=== PATIENT | male | born 1995 | race Caucasian/White ===

== ENCOUNTER 2020-03-13 23:08 | Emergency (ER) | payer OTHER, SELFPAY ==
[2020-03-13] MEDS ORDERED: KETOROLAC 30 MG/ML INJ ONE (23:39)
[2020-03-13] MEDS ORDERED: ONDANSETRON 4 MG/2 ML VIAL ONE (23:39)
[2020-03-13] MEDS ORDERED: NA CHLORIDE 0.9% 1,000 ML ONE (23:40)
[2020-03-13 23:46] LABS: Absolute Lymphocytes (CBC) 1.3 K/uL (0.7-4.9); Basophils % 0.3 % (0-1.3); Hematocrit 47.1 % (39.6-49.0); Lymphocytes % 9.9 % (15.3-44.8); RBC Red Blood Cell Count 5.41 M/uL (4.33-5.43)
[2020-03-13 23:58] LABS: Albumin 4.8 g/dL (3.4-5.0); Bilirubin Direct 0.2 mg/dL (0-0.2); Bilirubin Total 0.9 mg/dL (0.2-1.0); Potassium 3.8 mmol/L (3.5-5.1); Protein, Total 8.7 g/dL (6.4-8.2)
[2020-03-14] MEDS ORDERED: MORPHINE 4 MG/ML SYR ONE (00:18)
[2020-03-14 00:48] LABS: Blood Morphology Comment NOT SEEN (NOT SEEN); Platelet Estimate ADEQ
--- NOTE | 2020-03-14 01:47 | EDPHYS ---
Physician Documentation [facility] Name: Kishan Jose Age: 24 yrs Sex: Male : 1995 Arrival Date: 03/13/2020 Time: 23:13 Bed 6 Private MD: ED Physician Roberto Carlos Jones HPI: 03/14 01:43 This 24 yrs old Male presents to ER via Ambulatory with complaints of tw4 Abdominal Pain, Breathing Difficulty, Vision Problem. 01:43 The patient presents with abdominal pain. Onset: The symptoms/episode began/occurred tw4 today. The symptoms do not radiate. Associated signs and symptoms: Pertinent positives: headache. The symptoms are described as crampy. Modifying factors: The symptoms are alleviated by nothing, the symptoms are aggravated by nothing. Severity of pain: At its worst the pain was moderate in the emergency department the pain is unchanged. The patient has not experienced similar symptoms in the past. Historical: - Allergies: 03/13 23:23 No Known Allergies; mg2 - PMHx: 23:23 None; mg2 - PSHx: 23:23 None; mg2 - Immunization history:: Flu vaccine is not up to date. - Social history:: Smoking status: Patient denies any tobacco usage or history of. Patient uses alcohol, occasionally. Patient/guardian denies using street drugs, IV drugs. ROS: 03/14 01:43 Constitutional: Negative for fever, chills, and weight loss, Eyes: Negative for injury, tw4 pain, redness, and discharge, Cardiovascular: Negative for chest pain, palpitations, and edema, Respiratory: Negative for shortness of breath, cough, wheezing, and pleuritic chest pain. MS/Extremity: Negative for injury and deformity, Skin: Negative for injury, rash, and discoloration, Neuro: Negative for headache, weakness, numbness, tingling, and seizure. Abdomen/GI: Positive for abdominal pain, Negative for nausea and vomiting, nausea, vomiting, and diarrhea, nausea, abdominal cramps, abdominal distension, anorexia, dysphagia, hematemesis, black/tarry stool, rectal bleeding. Exam: 01:43 Constitutional: This is a well developed, well nourished patient who is awake, alert, tw4 and in no acute distress. Head/Face: Normocephalic, atraumatic. Chest/axilla: Normal chest wall appearance and motion. Nontender with no deformity. No lesions are appreciated. Cardiovascular: Regular rate and rhythm with a normal S1 and S2. No gallops, murmurs, or rubs. Normal PMI, no JVD. No pulse deficits. Respiratory: Lungs have equal breath sounds bilaterally, clear to auscultation and percussion. No rales, rhonchi or wheezes noted. No increased work of breathing, no retractions or nasal flaring. Back: No spinal tenderness. No costovertebral tenderness. Full range of motion. MS/ Extremity: Pulses equal, no cyanosis. Neurovascular intact. Full, normal range of motion. Neuro: Awake and alert, GCS 15, oriented to person, place, time, and situation. Cranial nerves II-XII grossly intact. Motor strength 5/5 in all extremities. Sensory grossly intact. Cerebellar exam normal. Normal gait. 01:43 Abdomen/GI: Inspection: abdomen appears normal, Bowel sounds: normal, Palpation: moderate abdominal tenderness, in the left lower quadrant. Vital Signs: 03/13 23:21 BP 143 / 80; Pulse 55; Resp 18; Temp 97.5; Pulse Ox 100% on R/A; Weight 116.12 kg; mg2 Height 6 ft. 0 in. (182.88 cm); 03/14 00:29 BP 112 / 89; Pulse 58; Resp 18; Pulse Ox 100% on R/A; mg2 01:38 BP 122 / 64; Pulse 52; Resp 18; Pulse Ox 100% on R/A; mg2 03/13 23:21 Body Mass Index 34.72 (116.12 kg, 182.88 cm) mg2 MDM: 03/13 23:16 Patient medically screened. tw4 03/14 01:43 Differential diagnosis: appendicitis, diverticulitis, gastritis, non-specific abd pain, tw4 Peritonitis, Ureterolithiasis, urinary tract infection. Data reviewed: vital signs, nurses notes, lab test result(s), CBC, electrolytes, hepatic panel, urinalysis, radiologic studies, CT scan. Data interpreted: media monitor: rhythm is normal sinus rhythm, Pulse oximetry: Interpretation: normal. Counseling: I had a detailed discussion with the patient and/or guardian regarding: the historical points, exam findings, and any diagnostic results supporting the discharge/admit diagnosis, lab results, radiology results. Medication response: morphine markedly relieved the patient's pain. Symptoms have improved, Special discussion: Based on the patient's Hx, exam, and Dx evaluation, there is no indication for emergent surgery or inpatient Tx. It is understood by the patient/guardian that if the Sx's persist or worsen they need to return immediately for re-evaluation. I discussed with the patient/guardian in detail that at this point there is no indication for admission to the hospital. It is understood, however, that if the symptoms persist or worsen the patient needs to return immediately for re-evaluation. 03/13 23:26 Order name: Basic Metabolic Panel; Complete Time: :03/14 01:33 Interpretation: Normal except: GLUC 113; GFR 66; CRE 1.36; BUN 21. 03/13 23:26 Order name: CBC with Diff; Complete Time: :03/14 01:36 Interpretation: Normal except: WBC 13.3; LYM% 9.9; DARI% 85.4; NEUT A 11.4. 03/13 23:26 Order name: Creatinine for Radiology; Complete Time: :03/13 23:26 Order name: Hepatic Function; Complete Time: :03/13 23:26 Order name: Lipase; Complete Time: :03/13 23:54 Order name: Manual Differential; Complete Time: 01:33 EDMS 03/13 23:26 Order name: IV Saline Lock; Complete Time: 23:32 03/13 23:26 Order name: Labs collected and sent; Complete Time: 23:32 03/13 23:26 Order name: CT Abd/Pelvis - IV Contrast Only 03/14 01:38 Order name: Urine Dipstick--Ancillary (enter results) ds4 03/14 01:37 Order name: Urine Dipstick-Ancillary (obtain specimen); Complete Time: 01:37 ds4 Administered Medications: 03/13 23:38 Drug: TORadol 30 mg Route: IVP; Site: right antecubital; mg2 03/14 00:15 Follow up: Response: No adverse reaction; Pain is unchanged, physician notified mg2 03/13 23:38 Drug: Zofran (Ondansetron) 4 mg Route: IVP; Site: right antecubital; mg2 03/14 00:15 Follow up: Response: No adverse reaction mg2 03/13 23:38 Drug: NS 0.9% 1000 ml Route: IV; Rate: 1 bolus; Site: right antecubital; mg2 03/14 02:04 Follow up: Response: No adverse reaction; IV Status: Completed infusion; IV Intake: mg2 1000ml 00:15 Drug: morphine 4 mg Route: IVP; Site: right antecubital; mg2 02:04 Follow up: Response: No adverse reaction; Marked relief of symptoms; RASS: Alert and mg2 Calm (0) Disposition: 03/14/20 01:47 Discharged to Home. Impression: Other viral enteritis. - Condition is Stable. - Discharge Instructions: Viral Gastroenteritis, Adult. - Prescriptions for Bentyl 20 mg Oral Tablet - take 1 tablet by ORAL route every 6 hours As needed; 20 tablet. Zofran 4 mg Oral Tablet - take 1 tablet by ORAL route every 12 hours As needed; 6 tablet. - Medication Reconciliation Form, Thank You Letter, Antibiotic Education, Prescription Opioid Use form. - Follow up: Private Physician; When: Upon discharge from the Emergency Department; Reason: Recheck today's complaints, Continuance of care, Re-evaluation by your physician. - Problem is new. - Symptoms have improved. Signatures: Dispatcher [employer] EDMS Sigifredo Beebe ds4 Roberto Carlos Jones MD MD tw4 Guido Campbell RN RN mg2 Corrections: (The following items were deleted from the chart) 02:04 01:47 03/14/2020 01:47 Discharged to Home. Impression: Other viral enteritis. Condition mg2 is Stable. Forms are Medication Reconciliation Form, Thank You Letter, Antibiotic Education, Prescription Opioid Use. Follow up: Private Physician; When: Upon discharge from the Emergency Department; Reason: Recheck today's complaints, Continuance of care, Re-evaluation by your physician. Problem is new. Symptoms have improved. tw4
--- NOTE | 2020-03-14 01:47 | ER ---
Nurse's Notes [facility] Name: Kishan Jose Age: 24 yrs Sex: Male : 1995 Arrival Date: 03/13/2020 Time: 23:13 Bed 6 Private MD: Diagnosis: Other viral enteritis Presentation: 03/13 23:21 Chief complaint: Patient states: i have lower abdominal pain, vomiting and shortness of mg2 breath all day. denies fever. Coronavirus screen: Proceed with normal triage. Patient denies a cough. Patient reports shortness of breath or difficulty breathing. Patient denies measured and/or subjective temperature greater than 100.4F prior to today's visit. Patient denies travel on a cruise ship or to a country the [facility] currently lists as an affected area. Patient denies contact with known and/or suspected case of COVID-19. Ebola Screen: No symptoms or risks identified at this time. Initial Sepsis Screen: Does the patient meet any 2 criteria? No. Patient's initial sepsis screen is negative. Does the patient have a suspected source of infection? No. Patient's initial sepsis screen is negative. Risk Assessment: Do you want to hurt yourself or someone else? Patient reports no desire to harm self or others. Onset of symptoms was March 13, 2020. 23:21 Method Of Arrival: Ambulatory mg2 23:21 Acuity: VIC 3 mg2 Historical: - Allergies: 23:23 No Known Allergies; mg2 - PMHx: 23:23 None; mg2 - PSHx: 23:23 None; mg2 - Immunization history:: Flu vaccine is not up to date. - Social history:: Smoking status: Patient denies any tobacco usage or history of. Patient uses alcohol, occasionally. Patient/guardian denies using street drugs, IV drugs. Screenin:25 Abuse screen: Denies threats or abuse. Denies injuries from another. Nutritional mg2 screening: No deficits noted. Tuberculosis screening: No symptoms or risk factors identified. 23:43 Fall Risk IV access (20 points). mg2 Assessment: 23:23 General: Appears in no apparent distress. comfortable, Behavior is calm, cooperative. mg2 Pain: Complains of pain in abdomen Pain does not radiate. Quality of pain is described as aching, Pain began gradually. Neuro: Level of Consciousness is awake, alert, obeys commands, Oriented to person, place, time, situation. Cardiovascular: Capillary refill < 3 seconds Patient's skin is warm and dry. Respiratory: Airway is patent Respiratory effort is even, unlabored, Respiratory pattern is regular, symmetrical. GI: Bowel sounds present X 4 quads. Abd is soft. GI: Reports lower abdominal pain, vomiting. : No signs and/or symptoms were reported regarding the genitourinary system. EENT: No signs and/or symptoms were reported regarding the EENT system. Derm: Skin is intact, is healthy with good turgor, Skin is pink, warm \T\ dry. normal. Musculoskeletal: Circulation, motion, and sensation intact. Capillary refill < 3 seconds. 03/14 00:15 Reassessment: patient sent to ct scan via stretcher. mg2 00:26 Reassessment: patient is back from ct scan. mg2 00:29 Reassessment: Patient appears in no apparent distress at this time. Patient and/or mg2 family updated on plan of care and expected duration. Pain level reassessed. Patient is alert, oriented x 3, equal unlabored respirations, skin warm/dry/pink. 01:38 Reassessment: Patient appears in no apparent distress at this time. Patient and/or mg2 family updated on plan of care and expected duration. Pain level reassessed. Patient is alert, oriented x 3, equal unlabored respirations, skin warm/dry/pink. 02:02 Reassessment: Patient denies pain at this time. Patient states feeling better. Patient mg2 states symptoms have improved. Vital Signs: 03/13 23:21 BP 143 / 80; Pulse 55; Resp 18; Temp 97.5; Pulse Ox 100% on R/A; Weight 116.12 kg; mg2 Height 6 ft. 0 in. (182.88 cm); 03/14 00:29 BP 112 / 89; Pulse 58; Resp 18; Pulse Ox 100% on R/A; mg2 01:38 BP 122 / 64; Pulse 52; Resp 18; Pulse Ox 100% on R/A; mg2 03/13 23:21 Body Mass Index 34.72 (116.12 kg, 182.88 cm) mg2 ED Course: 03/13 23:13 Patient arrived in ED. mr 23:16 Roberto Carlos Jones MD is Attending Physician. tw4 23:21 Gardose, Guido, RN is Primary Nurse. mg2 23:23 Triage completed. mg2 23:23 Arm band placed on. mg2 23:25 Patient has correct armband on for positive identification. Pulse ox on. NIBP on. Door mg2 closed. Warm blanket given. 23:43 No provider procedures requiring assistance completed. mg2 03/14 00:25 Inserted saline lock: 20 gauge in right antecubital area, using aseptic technique. mg2 Blood collected. 00:34 CT Abd/Pelvis - IV Contrast Only In Process Unspecified. EDMS 02:03 IV discontinued, intact, bleeding controlled, No redness/swelling at site. Pressure mg2 dressing applied. Administered Medications: 03/13 23:38 Drug: TORadol 30 mg Route: IVP; Site: right antecubital; mg2 03/14 00:15 Follow up: Response: No adverse reaction; Pain is unchanged, physician notified mg2 03/13 23:38 Drug: Zofran (Ondansetron) 4 mg Route: IVP; Site: right antecubital; mg2 03/14 00:15 Follow up: Response: No adverse reaction mg2 03/13 23:38 Drug: NS 0.9% 1000 ml Route: IV; Rate: 1 bolus; Site: right antecubital; mg2 03/14 02:04 Follow up: Response: No adverse reaction; IV Status: Completed infusion; IV Intake: mg2 1000ml 00:15 Drug: morphine 4 mg Route: IVP; Site: right antecubital; mg2 02:04 Follow up: Response: No adverse reaction; Marked relief of symptoms; RASS: Alert and mg2 Calm (0) Intake: 02:04 IV: 1000ml; Total: 1000ml. mg2 Outcome: 01:47 Discharge ordered by . tw4 02:04 Discharged to home ambulatory. mg2 02:04 Condition: stable 02:04 Discharge instructions given to patient, Instructed on discharge instructions, follow up and referral plans. medication usage, Demonstrated understanding of instructions, follow-up care, medications, Prescriptions given X 2. 02:04 Patient left the ED. mg2 Signatures: Dispatcher [employer] EDWV Inga Velasquez Terrence, MD MD tw4 Guido Campbell RN RN mg2 Corrections: (The following items were deleted from the chart) 00:25 00:15 Reassessment: patient sent to ct scan via wheelchair, mg2 mg2 02:03 00:30 Inserted saline lock: 20 gauge in right antecubital area, using aseptic mg2 technique. Blood collected. mg2
[2020-03-14 02:12] VITALS: TEMP 97.5; O2SAT 100
[2020-03-14 02:15] VITALS: BP 122/64
[2020-03-14 03:35] LABS: Urine Blood NEGATIVE (NEG); Urine Glucose NEGATIVE (NEG); Urine Protein NEGATIVE (NEG); Urine Specific Gravity 1.015 (1.005-1.030)
--- NOTE | 2020-03-14 09:12 | RAD REPORT ---
EXAM DESCRIPTION: CT - Abdomen Pelvis W Contrast - 03/14/2020 4:16 am CLINICAL HISTORY: ABD PAIN COMPARISON: None. TECHNIQUE: CT ABDOMEN PELVIS WITH IV CONTRAST on 03/13/2020 11:26 PM CDT This exam was performed according to our departmental dose-optimization program, which includes autom ated exposure control, adjustment of the mA and/or kV according to patient size and/or use of iterati ve reconstruction technique. FINDINGS: Lower lungs are clear. Abdomen: Liver is fatty in attenuation. There is no biliary dilatation. Gallbladder is normal in appe arance. The pancreas and spleen are normal in appearance. The adrenal glands and kidneys are unremark able. Abdominal aorta is normal in course and caliber without aneurysm. There is no free air. There is no r etroperitoneal adenopathy. Pelvis: There is no bowel obstruction. Urinary bladder is unremarkable. There is no free fluid. There is small amount of fluid in the right inguinal region. Appendix is normal. Skeleton: There are no acute osseous findings. No suspicious bony lesions. IMPRESSION: No definite acute inflammatory process. Electronically signed by: Khari Trammell MD 03/14/2020 1:10 AM CDT Due to temporary technical issues with the PACS/Fluency reporting system, reports are being signed by the in house radiologist as a courtesy to ensure prompt reporting. The interpreting radiologist is f carrily responsible for the content of the report.
== END 2020-03-14 02:04 | disposition home or self-care (01) ==
LOC: ER 23:08
DX: A08.39 Other viral enteritis (principal)
CPT/HCPCS: 36415; 74177; 80048; 80076; 81003; 83690; 85025; 96361; 96374; 96375; 99284; J2405; J7030; Q9967

== ENCOUNTER 2020-07-27 12:01 | Emergency (ER) | payer SELFPAY ==
[2020-07-27 12:41] LABS: Absolute Lymphocytes (CBC) 2.9 K/uL (0.7-4.9); Basophils % 0.5 % (0-1.3); Hematocrit 48.6 % (39.6-49.0); MPV 10.2 fL (7.6-11.3); RBC Red Blood Cell Count 5.55 M/uL (4.33-5.43)
[2020-07-27] MEDS ORDERED: ONDANSETRON 4 MG/2 ML VIAL ONE (12:53)
[2020-07-27] MEDS ORDERED: MORPHINE 4 MG/ML SYR ONE (12:53)
[2020-07-27] MEDS ORDERED: NA CHLORIDE 0.9% 1,000 ML ONE ×2 (12:53→14:06)
[2020-07-27 13:02] LABS: Albumin 4.6 g/dL (3.4-5.0); Bilirubin Direct 0.2 mg/dL (0-0.2); Bilirubin Total 0.7 mg/dL (0.2-1.0); Potassium 3.6 mmol/L (3.5-5.1); Protein, Total 8.6 g/dL (6.4-8.2)
--- NOTE | 2020-07-27 13:47 | RAD REPORT ---
EXAM DESCRIPTION: CT - Abdomen Pelvis Wo Contrast - 07/27/2020 1:27 pm CLINICAL HISTORY: Abdominal pain COMPARISON: February 2020 TECHNIQUE: Computed axial tomography of the abdomen and pelvis was obtained. IV and oral contrast we re not requested. All CT scans are performed using dose optimization technique as appropriate and may include automated exposure control or mA/KV adjustment according to patient size. FINDINGS: The evaluation of solid organs, vessels and bowel is limited secondary to the lack of con trast administration. The liver, spleen, pancreas, adrenals and kidneys appear grossly normal. The appendix is normal. There is no evidence of diverticulitis. IMPRESSION: No acute abnormality is displayed.
[2020-07-27] MEDS ORDERED: DICYCLOMINE HCL 10 MG CAP ONE (14:06)
--- NOTE | 2020-07-27 14:20 | EDPHYS ---
Physician Documentation [facility] Name: Kishan Jose Age: 24 yrs Sex: Male : 1995 Arrival Date: 07/27/2020 Time: 12:03 Bed 17 Private MD: ED Physician Olvin Thao HPI: 07/27 13:19 This 24 yrs old Male presents to ER via Wheelchair with complaints of jr8 Vomiting, Abdominal Pain. 13:19 The patient presents to the emergency department with nausea, vomiting, abdominal pain, jr8 of the abdomen diffusely, described as crampy. Onset: The symptoms/episode began/occurred acutely, today. Possible causes: unknown. The symptoms are aggravated by nothing. The symptoms are alleviated by nothing. Associated signs and symptoms: The patient has no apparent associated signs or symptoms. Severity of symptoms: At their worst the symptoms were moderate in the emergency department the symptoms are unchanged. The patient has not experienced similar symptoms in the past. The patient has not recently seen a physician. Historical: - Allergies: 12:09 No Known Allergies; ll1 - PSHx: 12:09 None; ll1 - Immunization history:: Flu vaccine status is unknown. - Social history:: Smoking status: Patient denies any tobacco usage or history of. ROS: 13:19 Eyes: Negative for injury, pain, redness, and discharge, ENT: Negative for injury, jr8 pain, and discharge, Neck: Negative for injury, pain, and swelling, Cardiovascular: Negative for chest pain, palpitations, and edema, Respiratory: Negative for shortness of breath, cough, wheezing, and pleuritic chest pain, Back: Negative for injury and pain, MS/Extremity: Negative for injury and deformity, Skin: Negative for injury, rash, and discoloration, Neuro: Negative for headache, weakness, numbness, tingling, and seizure. 13:19 Abdomen/GI: Positive for abdominal pain, nausea and vomiting, abdominal cramps, Negative for diarrhea, constipation, abdominal distension. Exam: 13:19 Eyes: Pupils equal round and reactive to light, extra-ocular motions intact. Lids and jr8 lashes normal. Conjunctiva and sclera are non-icteric and not injected. Cornea within normal limits. Periorbital areas with no swelling, redness, or edema. ENT: Nares patent. No nasal discharge, no septal abnormalities noted. Tympanic membranes are normal and external auditory canals are clear. Oropharynx with no redness, swelling, or masses, exudates, or evidence of obstruction, uvula midline. Mucous membranes moist. Neck: Trachea midline, no thyromegaly or masses palpated, and no cervical lymphadenopathy. Supple, full range of motion without nuchal rigidity, or vertebral point tenderness. No Meningismus. Cardiovascular: Regular rate and rhythm with a normal S1 and S2. No gallops, murmurs, or rubs. Normal PMI, no JVD. No pulse deficits. Respiratory: Lungs have equal breath sounds bilaterally, clear to auscultation and percussion. No rales, rhonchi or wheezes noted. No increased work of breathing, no retractions or nasal flaring. Abdomen/GI: Soft, with normal bowel sounds. Mild tenderness to upper abdomen on right and left sides. No distension or tympany. No guarding or rebound. Back: No spinal tenderness. No costovertebral tenderness. Full range of motion. Skin: Warm, dry with normal turgor. Normal color with no rashes, no lesions, and no evidence of cellulitis. MS/ Extremity: Pulses equal, no cyanosis. Neurovascular intact. Full, normal range of motion. Neuro: Awake and alert, GCS 15, oriented to person, place, time, and situation. Cranial nerves II-XII grossly intact. Motor strength 5/5 in all extremities. Sensory grossly intact. Cerebellar exam normal. Normal gait. Vital Signs: 12:16 BP 151 / 93; Pulse 112; Resp 20; Temp 97.5; Pulse Ox 100% ; Pain 10/10; ll1 13:00 BP 150 / 92; Pulse 103; Resp 20; Pulse Ox 99% on R/A; ph 14:09 BP 142 / 89; Pulse 101; Resp 18; Pulse Ox 98% on R/A; ph 15:00 BP 151 / 78; Pulse 97; Resp 18; Temp 97.8; Pulse Ox 99% on R/A; ph MDM: 12:28 Patient medically screened. jr8 14:18 Data reviewed: vital signs, nurses notes, lab test result(s), radiologic studies, CT jr8 scan. Data interpreted: Pulse oximetry: on room air is 98 %. Interpretation: normal. Counseling: I had a detailed discussion with the patient and/or guardian regarding: the historical points, exam findings, and any diagnostic results supporting the discharge/admit diagnosis, lab results, radiology results, the need for outpatient follow up, a family practitioner, to return to the emergency department if symptoms worsen or persist or if there are any questions or concerns that arise at home. Response to treatment: the patient's symptoms have markedly improved after treatment. Special discussion: Based on the patient's Hx, exam, and Dx evaluation, there is no indication for emergent surgery or inpatient Tx. It is understood by the patient/guardian that if the Sx's persist or worsen they need to return immediately for re-evaluation. 07/27 12:24 Order name: Basic Metabolic Panel; Complete Time: 13:10 07/27 12:24 Order name: CBC with Diff; Complete Time: 12:57 07/27 12:24 Order name: Hepatic Function; Complete Time: 13:10 07/27 12:24 Order name: Lipase; Complete Time: 13:10 07/27 13:11 Order name: CT Abd/Pelvis - Without Contrast; Complete Time: 13:53 07/27 12:24 Order name: IV Saline Lock; Complete Time: 12:37 07/27 12:24 Order name: Labs collected and sent; Complete Time: 12:37 Administered Medications: 12:46 Drug: NS 0.9% 1000 ml Route: IV; Rate: 1000 ml; Site: right antecubital; ph 14:05 Follow up: Response: No adverse reaction; IV Status: Completed infusion; IV Intake: ph 1000ml 12:46 Drug: Zofran (Ondansetron) 4 mg Route: IVP; Site: right antecubital; ph 14:06 Follow up: Response: No adverse reaction ph 12:46 Drug: morphine 4 mg Route: IVP; Site: right antecubital; ph 14:06 Follow up: Response: No adverse reaction; Pain is decreased ph 14:01 Drug: Bentyl 20 mg Route: PO; ph 14:10 Follow up: Response: No adverse reaction ph 14:02 Drug: NS 0.9% 1000 ml Route: IV; Rate: 1000 ml; Site: right antecubital; ph 15:58 Follow up: Response: No adverse reaction; IV Status: Completed infusion; IV Intake: ph 1000ml 16:18 Drug: TORadol 30 mg Route: IM; Site: right deltoid; ph Disposition: 17:00 Co-signature as Attending Physician, Olvin Thao MD I agree with the assessment and kdr plan of care. Disposition: 07/27/20 14:20 Discharged to Home. Impression: Acute Gastroenteritis, Dehydration. - Condition is Stable. - Discharge Instructions: Dehydration, Adult, Viral Gastroenteritis, Adult. - Prescriptions for Bentyl 20 mg Oral Tablet - take 1 tablet by ORAL route every 6 hours As needed; 20 tablet. promethazine 25 mg Oral Tablet - take 1 tablet by ORAL route every 6 hours As needed; 20 tablet. - Medication Reconciliation Form, Thank You Letter, Antibiotic Education, Prescription Opioid Use form. - Follow up: Private Physician; When: 2 - 3 days; Reason: Recheck today's complaints, Continuance of care, Re-evaluation by your physician. - Problem is new. - Symptoms have improved. Signatures: Dispatcher [employer] EDMI Olvin Thao MD MD [facility] Vikram Cervantes PA PA jr8 Marisa Summers RN RN ph Haley Nagy RN RN ll1 Corrections: (The following items were deleted from the chart) 16:40 14:20 07/27/2020 14:20 Discharged to Home. Impression: Acute Gastroenteritis; ph Dehydration. Condition is Stable. Forms are Medication Reconciliation Form, Thank You Letter, Antibiotic Education, Prescription Opioid Use. Follow up: Private Physician; When: 2 - 3 days; Reason: Recheck today's complaints, Continuance of care, Re-evaluation by your physician. Problem is new. Symptoms have improved. jr8
--- NOTE | 2020-07-27 14:20 | ER ---
Nurse's Notes [facility] Name: Kishan Jose Age: 24 yrs Sex: Male : 1995 Arrival Date: 07/27/2020 Time: 12:03 Bed 17 Private MD: Diagnosis: Acute Gastroenteritis;Dehydration Presentation: 07/27 12:16 Chief complaint: Patient states: Abd pain with N/V since this morning. Actively dry ll1 heaving in triage. No known fever. No cough/SOB. Coronavirus screen: Client denies travel out of the [place] in the last 14 days. vomiting. At this time, the client does not indicate any symptoms associated with coronavirus-19. Ebola Screen: Patient denies travel to an Ebola-affected area in the 21 days before illness onset. Initial Sepsis Screen: Does the patient meet any 2 criteria? HR > 90 bpm. Risk Assessment: Do you want to hurt yourself or someone else? Patient reports no desire to harm self or others. Onset of symptoms was July 27, 2020. 12:16 Method Of Arrival: Wheelchair ll1 12:16 Acuity: VIC 3 ll1 14:10 Initial Sepsis Screen: Does the patient have a suspected source of infection? No. ph Patient's initial sepsis screen is negative. Historical: - Allergies: 12:09 No Known Allergies; ll1 - PSHx: 12:09 None; ll1 - Immunization history:: Flu vaccine status is unknown. - Social history:: Smoking status: Patient denies any tobacco usage or history of. Screenin:33 Abuse screen: Denies threats or abuse. Denies injuries from another. Nutritional ph screening: No deficits noted. Tuberculosis screening: No symptoms or risk factors identified. Fall Risk None identified. Assessment: 12:45 General: Appears in no apparent distress. uncomfortable, well groomed, Behavior is ph cooperative, restless. Pain: Complains of pain in abdomen diffusely. Neuro: Level of Consciousness is awake, alert, obeys commands, Oriented to person, place, time, situation. Cardiovascular: Capillary refill < 3 seconds in bilateral fingers Patient's skin is warm and dry. Respiratory: Airway is patent Respiratory effort is even, unlabored. GI: Abdomen is non-distended, Reports lower abdominal pain, upper abdominal pain, nausea, vomiting. Derm: Skin is intact, Skin is pink, warm \\T\\ dry. 14:07 Reassessment: Patient appears in no apparent distress at this time. Patient and/or ph family updated on plan of care and expected duration. Pain level reassessed. Patient is alert, oriented x 3, equal unlabored respirations, skin warm/dry/pink. Pt reports that nausea has improved, requesting pain medication, states, " The other stuff helped for a little bit but it wore off." ERP notified, see MAR. 14:52 Reassessment: Patient appears in no apparent distress at this time. Patient and/or ph family updated on plan of care and expected duration. Pain level reassessed. Patient is alert, oriented x 3, equal unlabored respirations, skin warm/dry/pink. D/C pending completion of IV fluids, pt resting comfortably. 16:00 Reassessment: Patient appears in no apparent distress at this time. Patient and/or ph family updated on plan of care and expected duration. Pain level reassessed. Patient is alert, oriented x 3, equal unlabored respirations, skin warm/dry/pink. IV d/c and discharge papers signed by pt, pt states, " Does that mean I have to leave the room now? I can't stay in here for a little bit?" Explained to pt that there are pt's waiting in [facility] so he needed to leave ED room after dressing and gathering belongings, pt states, " I have to call my ride." Pt given cell phone to call ride home Patient states symptoms have improved. 16:15 Reassessment: Patient appears in no apparent distress at this time. Patient and/or ph family updated on plan of care and expected duration. Pain level reassessed. Entered room to see if pt was ready to go to [facility], pt found in bed lying on side covered w/ blanket, states, " My stomach really hurts, do you think I can get some more pain medication?" Pt denies nausea, IV previously d/c when discharge instructions given to pt, ERP notified. 16:24 Reassessment: IM medication administered, see MAR, waiting 15 min shot time before d/c. ph Vital Signs: 12:16 BP 151 / 93; Pulse 112; Resp 20; Temp 97.5; Pulse Ox 100% ; Pain 10/10; ll1 13:00 BP 150 / 92; Pulse 103; Resp 20; Pulse Ox 99% on R/A; ph 14:09 BP 142 / 89; Pulse 101; Resp 18; Pulse Ox 98% on R/A; ph 15:00 BP 151 / 78; Pulse 97; Resp 18; Temp 97.8; Pulse Ox 99% on R/A; ph ED Course: 12:03 Patient arrived in ED. mr 12:09 Arm band placed on Patient placed in an exam room, on a stretcher. ll1 12:10 Marisa Summers, RN is Primary Nurse. ph 12:18 Triage completed. ll1 12:23 Vikram Cervantes PA is PHCP. jr8 12:23 Olvin Thao MD is Attending Physician. jr8 12:33 Patient has correct armband on for positive identification. Placed in gown. Bed in low ph position. Call light in reach. Side rails up X 1. Pulse ox on. NIBP on. Door closed. Noise minimized. Warm blanket given. PO fluids given. 12:37 Initial lab(s) drawn, by me, sent to lab. Inserted saline lock: 20 gauge in right jp3 antecubital area, using aseptic technique. Blood collected. Patient maintains SpO2 saturation greater than 95% on room air. 13:27 CT Abd/Pelvis - Without Contrast In Process Unspecified. EDMS 16:01 No provider procedures requiring assistance completed. IV discontinued, intact, ph bleeding controlled, No redness/swelling at site. Pressure dressing applied. Administered Medications: 12:46 Drug: NS 0.9% 1000 ml Route: IV; Rate: 1000 ml; Site: right antecubital; ph 14:05 Follow up: Response: No adverse reaction; IV Status: Completed infusion; IV Intake: ph 1000ml 12:46 Drug: Zofran (Ondansetron) 4 mg Route: IVP; Site: right antecubital; ph 14:06 Follow up: Response: No adverse reaction ph 12:46 Drug: morphine 4 mg Route: IVP; Site: right antecubital; ph 14:06 Follow up: Response: No adverse reaction; Pain is decreased ph 14:01 Drug: Bentyl 20 mg Route: PO; ph 14:10 Follow up: Response: No adverse reaction ph 14:02 Drug: NS 0.9% 1000 ml Route: IV; Rate: 1000 ml; Site: right antecubital; ph 15:58 Follow up: Response: No adverse reaction; IV Status: Completed infusion; IV Intake: ph 1000ml 16:18 Drug: TORadol 30 mg Route: IM; Site: right deltoid; ph Intake: 14:05 IV: 1000ml; Total: 1000ml. ph 15:58 IV: 1000ml; Total: 2000ml. ph Outcome: 14:20 Discharge ordered by MD. granger 16:01 Discharged to home ambulatory. ph 16:01 Condition: improved 16:01 Discharge instructions given to patient, Instructed on discharge instructions, follow up and referral plans. medication usage, Demonstrated understanding of instructions, follow-up care, medications, Prescriptions given X 2. 16:40 Patient left the ED. ph Signatures: Dispatcher [employer] SUEMI RonInga ArunVikram white PA PA jr8 Hall, Patricia, RN RN ph Rojas Kirkpatrick Lynsay, RN RN ll1
[2020-07-27] MEDS ORDERED: KETOROLAC 30 MG/ML INJ ONE (16:26)
[2020-07-29 13:31] VITALS: BP 151/78; TEMP 97.8; O2SAT 99
== END 2020-07-27 16:40 | disposition home or self-care (01) ==
LOC: ER 12:01
DX: K52.9 Noninfective gastroenteritis and colitis, unspecified (principal); E86.0 Dehydration
CPT/HCPCS: 36415; 74176; 80048; 80076; 83690; 85025; 96361; 96372; 96374; 96375; 99284; J2405; J7030

== ENCOUNTER 2020-07-29 13:51 | Emergency (ER) | payer BC, SELFPAY ==
[2020-07-29] MEDS ORDERED: NA CHLORIDE 0.9% 1,000 ML ONE ×2 (14:59→15:48)
[2020-07-29] MEDS ORDERED: ONDANSETRON 4 MG/2 ML VIAL ONE (14:59)
[2020-07-29] MEDS ORDERED: KETOROLAC 30 MG/ML INJ ONE (14:59)
[2020-07-29 15:02] LABS: Absolute Lymphocytes (CBC) 1.7 K/uL (0.7-4.9); Basophils % 0.3 % (0-1.3); Hematocrit 47.1 % (39.6-49.0); MPV 10.8 fL (7.6-11.3); RBC Red Blood Cell Count 5.37 M/uL (4.33-5.43)
[2020-07-29 15:23] LABS: Albumin 4.5 g/dL (3.4-5.0); Bilirubin Direct 0.2 mg/dL (0-0.2); Bilirubin Total 0.8 mg/dL (0.2-1.0); Potassium 3.4 mmol/L (3.5-5.1); Protein, Total 7.9 g/dL (6.4-8.2)
[2020-07-29] MEDS ORDERED: PROMETHAZINE INJ 25 MG/ML AMP ONE ×2 (15:46→16:24)
[2020-07-29] MEDS ORDERED: MORPHINE 4 MG/ML SYR ONE (15:48)
--- NOTE | 2020-07-29 16:05 | ER ---
Nurse's Notes [facility] Name: Kishan Jose Age: 24 yrs Sex: Male : 1995 Arrival Date: 07/29/2020 Time: 13:53 Bed 14 Private MD: Diagnosis: Nausea and vomiting;Generalized abdominal pain Presentation: 07/29 13:55 Chief complaint: Patient states: n/v x 4 months, was seen here a couple of days ago. sv Coronavirus screen: Client denies travel out of the [place] in the last 14 days. Ebola Screen: No symptoms or risks identified at this time. Risk Assessment: Do you want to hurt yourself or someone else? Patient reports no desire to harm self or others. Onset of symptoms was 2019. 13:55 Method Of Arrival: Wheelchair sv 13:55 Acuity: VIC 2 sv 13:56 Initial Sepsis Screen: Does the patient meet any 2 criteria? No. Patient's initial sv sepsis screen is negative. Does the patient have a suspected source of infection? No. Patient's initial sepsis screen is negative. Triage Assessment: 14:00 General: Appears distressed, uncomfortable, Behavior is cooperative, appropriate for bp age, anxious. Pain: Denies pain. EENT: No deficits noted. Neuro: No deficits noted. Cardiovascular: No deficits noted. Respiratory: No deficits noted. GI: Reports nausea, vomiting. : No signs and/or symptoms were reported regarding the genitourinary system. Derm: No deficits noted. Musculoskeletal: No deficits noted. Historical: - Allergies: 13:56 No Known Allergies; sv - Home Meds: 14:05 None [Active]; bp - PMHx: 14:05 None; bp - PSHx: 13:56 None; sv - Immunization history:: Adult Immunizations. - Social history:: Smoking status: . Screenin:06 Abuse screen: Denies threats or abuse. Denies injuries from another. Nutritional bp screening: No deficits noted. Tuberculosis screening: No symptoms or risk factors identified. Fall Risk None identified. Assessment: 14:00 General: SEE TRIAGE NOTE. GI: Abdomen is non-distended. bp 14:41 Reassessment: PIV IN PLACE. PT C/O PAIN, PROVIDER NOTIFIED. bp 15:50 Reassessment: PT AFFIRMS PAIN AND NAUSEA, IVF INFUSING. VS STABLE ON MONITOR. bp 16:17 Reassessment: D/C ON HOLD FOR IVF INFUSION. PT REQUIRING FREQUENT REDIRECTION TO KEEP bp ARM STRAIGHT FOR IVF. 17:28 Reassessment: PT D/C HOME AMBULATORY, DX WITH NAUSEA AND VOMITING. bp 18:03 Reassessment: PT D/C HOME WITH FAMILY. bp Vital Signs: 13:56 BP 142 / 100; Pulse 45; Resp 22; Temp 98.3; Pulse Ox 100% ; Weight 108.86 kg; Height 6 sv ft. 0 in. (182.88 cm); 14:41 BP 129 / 94; Pulse 52; Resp 16; Pulse Ox 100% ; bp 15:50 BP 135 / 81; Pulse 78; Resp 16; Pulse Ox 96% ; bp 16:18 BP 149 / 96; Pulse 91; Resp 17; Pulse Ox 100% ; bp 17:28 BP 159 / 81; Pulse 75; Resp 16; Temp 98.5; Pulse Ox 100% ; bp 13:56 Body Mass Index 32.55 (108.86 kg, 182.88 cm) sv ED Course: 13:53 Patient arrived in ED. as 13:56 Triage completed. sv 13:56 Arm band placed on. sv 13:59 Magaly Valencia FNP-C is PHCP. kb 13:59 Mau Malave MD is Attending Physician. kb 14:04 Wally Jolly, VIOLET is Primary Nurse. bp 14:06 Patient has correct armband on for positive identification. Bed in low position. Call bp light in reach. Side rails up X2. 14:40 Inserted saline lock: 20 gauge in right antecubital area, using aseptic technique. bp Blood collected. 17:27 No provider procedures requiring assistance completed. IV discontinued, intact, bp bleeding controlled, No redness/swelling at site. Pressure dressing applied. Administered Medications: 14:50 Drug: NS 0.9% 1000 ml Route: IV; Rate: 1000 ml; Site: right antecubital; bp 17:29 Follow up: IV Status: Completed infusion; IV Intake: 1000ml bp 14:50 Drug: Zofran (Ondansetron) 4 mg Route: IVP; Site: right antecubital; bp 15:43 Follow up: Response: No adverse reaction bp 14:50 Drug: TORadol - Ketorolac 15 mg Route: IVP; Site: right antecubital; bp 15:43 Follow up: Response: No adverse reaction bp 15:40 Drug: NS 0.9% 1000 ml Route: IV; Rate: 1000 ml; Site: right antecubital; bp 17:29 Follow up: IV Status: Completed infusion; IV Intake: 1000ml bp 15:40 Drug: morphine 4 mg Route: IVP; Site: right antecubital; bp 16:17 Follow up: Response: No adverse reaction; Pain is decreased bp 15:40 Drug: Promethazine 12.5 mg Route: IVP; Site: right antecubital; bp 16:17 Follow up: Response: Nausea is decreased bp 16:15 Drug: Phenergan 12.5 mg Route: IVP; Site: right antecubital; bp 17:27 Follow up: Response: Nausea is decreased bp 16:16 Drug: Bentyl 20 mg Route: PO; bp 17:26 Follow up: Response: Pain is decreased bp Intake: 17:29 IV: 1000ml; Total: 1000ml. bp 17:29 IV: 1000ml; Total: 2000ml. bp Outcome: 16:04 Discharge ordered by . kb 17:28 Discharged to home ambulatory. bp 17:28 Condition: stable 17:28 Discharge instructions given to patient, Instructed on discharge instructions, follow up and referral plans. medication usage, Demonstrated understanding of instructions, follow-up care, medications, Prescriptions given X 2. 18:03 Patient left the ED. bp Signatures: Magaly Valencia FNP-C MEDICAL OFFICE WORKER-Fatoumata Watson RN RN Noris Pope Brian, RN RN bp Corrections: (The following items were deleted from the chart) 13:59 13:55 Acuity: VIC 3 sv sv 13:59 13:56 Resp 22bpm; Pulse Ox 100%; Temp 98.3F; 108.86 kg; Height 6 ft. 0 in.; BMI: 32.5; sv sv
--- NOTE | 2020-07-29 16:05 | EDPHYS ---
Physician Documentation [facility] Name: Kishan Jose Age: 24 yrs Sex: Male : 1995 Arrival Date: 07/29/2020 Time: 13:53 Bed 14 Private MD: ED Physician Mau Malave HPI: 07/29 15:54 This 24 yrs old Male presents to ER via Wheelchair with complaints of kb Nausea/Vomiting. 15:54 The patient presents to the emergency department with nausea, vomiting. Onset: The kb symptoms/episode began/occurred 4 month(s) ago. Possible causes: unknown. The symptoms are aggravated by nothing. The symptoms are alleviated by nothing. Associated signs and symptoms: Pertinent positives: abdominal pain, nausea, vomiting, Pertinent negatives: anorexia, belching, constipation, diarrhea, dysuria, fever, flatulence, GI bleeding, hematuria. Severity of symptoms: At their worst the symptoms were moderate in the emergency department the symptoms are unchanged. The patient has not experienced similar symptoms in the past. The patient has been recently seen at the [facility] Emergency Department. Pt reports nausea, vomiting and diffuse abd pain for 4 months. . Historical: - Allergies: 13:56 No Known Allergies; sv - Home Meds: 14:05 None [Active]; bp - PMHx: 14:05 None; bp - PSHx: 13:56 None; sv - Immunization history:: Adult Immunizations. - Social history:: Smoking status: . ROS: 15:53 Constitutional: Negative for fever, chills, and weight loss, Cardiovascular: Negative kb for chest pain, palpitations, and edema, Respiratory: Negative for shortness of breath, cough, wheezing, and pleuritic chest pain, Back: Negative for injury and pain, MS/Extremity: Negative for injury and deformity, Skin: Negative for injury, rash, and discoloration, Neuro: Negative for headache, weakness, numbness, tingling, and seizure. 15:53 Abdomen/GI: Positive for abdominal pain, nausea and vomiting, Negative for diarrhea, constipation, abdominal cramps, abdominal distension, anorexia. Exam: 15:53 Constitutional: This is a well developed, well nourished patient who is awake, alert, kb and in no acute distress. Head/Face: Normocephalic, atraumatic. Chest/axilla: Normal chest wall appearance and motion. Nontender with no deformity. No lesions are appreciated. Cardiovascular: Regular rate and rhythm with a normal S1 and S2. No gallops, murmurs, or rubs. Normal PMI, no JVD. No pulse deficits. Respiratory: Lungs have equal breath sounds bilaterally, clear to auscultation and percussion. No rales, rhonchi or wheezes noted. No increased work of breathing, no retractions or nasal flaring. Back: No spinal tenderness. No costovertebral tenderness. Full range of motion. Skin: Warm, dry with normal turgor. Normal color with no rashes, no lesions, and no evidence of cellulitis. MS/ Extremity: Pulses equal, no cyanosis. Neurovascular intact. Full, normal range of motion. Neuro: Awake and alert, GCS 15, oriented to person, place, time, and situation. Cranial nerves II-XII grossly intact. Motor strength 5/5 in all extremities. Sensory grossly intact. Cerebellar exam normal. Normal gait. 15:53 Abdomen/GI: Inspection: abdomen appears normal, Bowel sounds: normal, in all quadrants, Palpation: soft, in all quadrants, mild abdominal tenderness, in all quadrants. Vital Signs: 13:56 BP 142 / 100; Pulse 45; Resp 22; Temp 98.3; Pulse Ox 100% ; Weight 108.86 kg; Height 6 sv ft. 0 in. (182.88 cm); 14:41 BP 129 / 94; Pulse 52; Resp 16; Pulse Ox 100% ; bp 15:50 BP 135 / 81; Pulse 78; Resp 16; Pulse Ox 96% ; bp 16:18 BP 149 / 96; Pulse 91; Resp 17; Pulse Ox 100% ; bp 17:28 BP 159 / 81; Pulse 75; Resp 16; Temp 98.5; Pulse Ox 100% ; bp 13:56 Body Mass Index 32.55 (108.86 kg, 182.88 cm) sv MDM: 14:03 Patient medically screened. kb 15:53 Data reviewed: vital signs, nurses notes. Data interpreted: Pulse oximetry: on room air kb is 96 %. Interpretation: normal. Counseling: I had a detailed discussion with the patient and/or guardian regarding: the historical points, exam findings, and any diagnostic results supporting the discharge/admit diagnosis, lab results, the need for outpatient follow up, a family practitioner, a combination man, to return to the emergency department if symptoms worsen or persist or if there are any questions or concerns that arise at home. 15:57 Data reviewed: old medical records, CT scan from 07/27/20 shows no acute findings. kb 16:03 ED course: Pt educated to follow up with GI to further investigate symptoms.. kb 07/29 14:23 Order name: Basic Metabolic Panel; Complete Time: 15:28 kb 07/29 14:23 Order name: CBC with Diff; Complete Time: 15:10 kb 07/29 14:23 Order name: Hepatic Function; Complete Time: 15:28 kb 07/29 14:23 Order name: Lipase; Complete Time: 15:28 kb 07/29 14:23 Order name: IV Saline Lock; Complete Time: 14:40 kb 07/29 14:23 Order name: Labs collected and sent; Complete Time: 14:40 kb 07/29 15:30 Order name: PO challenge; Complete Time: 16:16 kb Administered Medications: 14:50 Drug: NS 0.9% 1000 ml Route: IV; Rate: 1000 ml; Site: right antecubital; bp 17:29 Follow up: IV Status: Completed infusion; IV Intake: 1000ml bp 14:50 Drug: Zofran (Ondansetron) 4 mg Route: IVP; Site: right antecubital; bp 15:43 Follow up: Response: No adverse reaction bp 14:50 Drug: TORadol - Ketorolac 15 mg Route: IVP; Site: right antecubital; bp 15:43 Follow up: Response: No adverse reaction bp 15:40 Drug: NS 0.9% 1000 ml Route: IV; Rate: 1000 ml; Site: right antecubital; bp 17:29 Follow up: IV Status: Completed infusion; IV Intake: 1000ml bp 15:40 Drug: morphine 4 mg Route: IVP; Site: right antecubital; bp 16:17 Follow up: Response: No adverse reaction; Pain is decreased bp 15:40 Drug: Promethazine 12.5 mg Route: IVP; Site: right antecubital; bp 16:17 Follow up: Response: Nausea is decreased bp 16:15 Drug: Phenergan 12.5 mg Route: IVP; Site: right antecubital; bp 17:27 Follow up: Response: Nausea is decreased bp 16:16 Drug: Bentyl 20 mg Route: PO; bp 17:26 Follow up: Response: Pain is decreased bp Disposition: 07/30 11:05 Co-signature as Attending Physician, Mau Malave MD I agree with the assessment and colton plan of care. Disposition: 07/29/20 16:04 Discharged to Home. Impression: Nausea and vomiting, Generalized abdominal pain. - Condition is Stable. - Discharge Instructions: Nausea and Vomiting, Adult, [id number], Abdominal Pain, Adult, [id number]. - Prescriptions for Bentyl 20 mg Oral Tablet - take 1 tablet by ORAL route every 6 hours As needed; 20 tablet. Phenergan 25 mg Rectal Suppository - insert 1 suppository by RECTAL route every 6 hours As needed; 12 suppository. - Medication Reconciliation Form, Thank You Letter, Antibiotic Education, Prescription Opioid Use form. - Follow up: Emergency Department; When: As needed; Reason: Worsening of condition. Follow up: Private Physician; When: 2 - 3 days; Reason: Recheck today's complaints, Continuance of care, Re-evaluation by your physician. Signatures: Dispatcher [employer] EDAR Magaly Valencia, ANITA-C IN STORE BANKER-Fatoumata Watson RN RN sv Anderson, Corey, MD MD cha Peltier, Brian RN RN bp Corrections: (The following items were deleted from the chart) 07/29 18:03 16:04 07/29/2020 16:04 Discharged to Home. Impression: Nausea and vomiting; Generalized bp abdominal pain. Condition is Stable. Forms are Medication Reconciliation Form, Thank You Letter, Antibiotic Education, Prescription Opioid Use. Follow up: Emergency Department; When: As needed; Reason: Worsening of condition. Follow up: Private Physician; When: 2 - 3 days; Reason: Recheck today's complaints, Continuance of care, Re-evaluation by your physician. kb
[2020-07-29] MEDS ORDERED: DICYCLOMINE HCL 10 MG CAP ONE (16:24)
[2020-07-31 01:44] VITALS: O2SAT 100
[2020-07-31 01:46] VITALS: BP 159/81; TEMP 98.5
== END 2020-07-29 18:03 | disposition home or self-care (01) ==
LOC: ER 13:51
DX: R10.84 Generalized abdominal pain (principal)
CPT/HCPCS: 96361; 85025; 80048; 36415; 80076; 83690; 96375; 96374; 99284; J2550 ×2; J7030 ×2; J2405

== ENCOUNTER 2021-08-19 18:11 | Emergency (ER) | payer BC ==
--- NOTE | 2021-08-19 18:26 | ER ---
Nurse's Notes [facility] Name: Kishan Jose Age: 25 yrs Sex: Male : 1995 Arrival Date: 08/19/2021 Time: 18:15 Bed Waiting Private MD: Diagnosis: Acute upper respiratory infection, unspecified Presentation: 08/19 18:19 Chief complaint: Patient states: Had sore throat, stuffy nose, fever, KEYS, slight cough ll1 for 10 days. Self quarantined, needs work release. Feeling better overall. Son was sick with similar illness. Coronavirus screen: Vaccine status: Patient reports being unvaccinated. Client denies travel out of the [place] in the last 14 days. cough unrelated to allergies, fatigue, fever, headache, sore throat, Client presents with at least one sign or symptom that may indicate coronavirus-19. Standard/surgical mask placed on the client. Ebola Screen: Patient denies travel to an Ebola-affected area in the 21 days before illness onset. Initial Sepsis Screen: Does the patient meet any 2 criteria? No. Patient's initial sepsis screen is negative. Does the patient have a suspected source of infection? No. Patient's initial sepsis screen is negative. Risk Assessment: Do you want to hurt yourself or someone else? Patient reports no desire to harm self or others. Onset of symptoms was August 09, 2021. 18:19 Method Of Arrival: Ambulatory ll1 18:19 Acuity: VIC 4 ll1 Triage Assessment: 18:22 General: Appears in no apparent distress. Behavior is calm, cooperative, appropriate ll1 for age. Pain: Denies pain. EENT: Nares are clear Reports nasal congestion nasal discharge. Neuro: No deficits noted. Cardiovascular: No deficits noted. Respiratory: Reports shortness of breath cough that is Airway is patent Trachea midline Respiratory effort is even, unlabored, Respiratory pattern is regular, symmetrical, Breath sounds are clear bilaterally. Onset: The symptoms/episode began/occurred suddenly. GI: No deficits noted. : No deficits noted. Historical: - Allergies: 18:19 No Known Allergies; ll1 - PMHx: 18:19 None; ll1 - PSHx: 18:19 None; ll1 - Immunization history:: Client reports having NOT received the Covid vaccine. - Social history:: Smoking status: Patient denies any tobacco usage or history of. Patient/guardian denies using alcohol, street drugs, The patient lives with family, . - Family history:: not pertinent. Screenin:22 Abuse screen: Denies threats or abuse. Nutritional screening: No deficits noted. ll1 Tuberculosis screening: No symptoms or risk factors identified. Fall Risk Total Escobar Fall Scale indicates No Risk (0-24 pts). Vital Signs: 18:19 BP 147 / 79; Pulse 50; Resp 17; Temp 98.5; Pulse Ox 100% ; Weight 108.86 kg; Height 6 ll1 ft. 1 in. (185.42 cm); Pain 0/10; 18:19 Body Mass Index 31.66 (108.86 kg, 185.42 cm) ll1 ED Course: 18:15 Patient arrived in ED. mr 18:19 Arm band placed on. ll1 18:21 Triage completed. ll1 18:22 Patient has correct armband on for positive identification. Call light in reach. Side ll1 rails up X 1. Pulse ox on. NIBP on. 18:23 No provider procedures requiring assistance completed. Patient did not have IV access ll1 during this emergency room visit. 18:24 Stormy Samuels MD is Attending Physician. ma2 Administered Medications: No medications were administered Outcome: 18:23 Discharged to home ambulatory. ll1 18:23 Condition: stable 18:23 Discharge instructions given to patient, Instructed on discharge instructions, follow up and referral plans. Demonstrated understanding of instructions, follow-up care. 18:25 Discharge ordered by . ma2 18:27 Patient left the ED. 1 Signatures: Ron Inga mr Stormy Sameuls MD MD ma2 Haley Nagy RN RN 1
--- NOTE | 2021-08-19 18:26 | EDPHYS ---
Physician Documentation [facility] Name: Kishan Jose Age: 25 yrs Sex: Male : 1995 Arrival Date: 08/19/2021 Time: 18:15 Bed Waiting Private MD: ED Physician Stormy Samuels HPI: 08/19 18:24 This 25 yrs old Male presents to ER via Ambulatory with complaints of Fever, ma2 uri. 18:24 Onset: The symptoms/episode began/occurred gradually, 3 day(s) ago. Associated signs ma2 and symptoms: Pertinent negatives: altered mental status, chest pain, chills, diarrhea, myalgias, night sweats, sinus drainage. Severity of symptoms: At their worst the symptoms were mild in the emergency department the symptoms are unchanged. The patient has experienced similar episodes in the past. Historical: - Allergies: 18:19 No Known Allergies; ll1 - PMHx: 18:19 None; ll1 - PSHx: 18:19 None; ll1 - Immunization history:: Client reports having NOT received the Covid vaccine. - Social history:: Smoking status: Patient denies any tobacco usage or history of. Patient/guardian denies using alcohol, street drugs, The patient lives with family, . - Family history:: not pertinent. ROS: 18:24 Constitutional: Negative for fever, chills, and weight loss. ma2 18:24 All other systems are negative. Exam: 18:24 Constitutional: This is a well developed, well nourished patient who is awake, alert, ma2 and in no acute distress. Head/Face: Normocephalic, atraumatic. Eyes: Pupils equal round and reactive to light, extra-ocular motions intact. Lids and lashes normal. Conjunctiva and sclera are non-icteric and not injected. Cornea within normal limits. Periorbital areas with no swelling, redness, or edema. ENT: Nares patent. No nasal discharge, no septal abnormalities noted. Tympanic membranes are normal and external auditory canals are clear. Oropharynx with no redness, swelling, or masses, exudates, or evidence of obstruction, uvula midline. Mucous membranes moist. Neck: Trachea midline, no thyromegaly or masses palpated, and no cervical lymphadenopathy. Supple, full range of motion without nuchal rigidity, or vertebral point tenderness. No Meningismus. Chest/axilla: Normal chest wall appearance and motion. Nontender with no deformity. No lesions are appreciated. Cardiovascular: Regular rate and rhythm with a normal S1 and S2. No gallops, murmurs, or rubs. Normal PMI, no JVD. No pulse deficits. Respiratory: Lungs have equal breath sounds bilaterally, clear to auscultation and percussion. No rales, rhonchi or wheezes noted. No increased work of breathing, no retractions or nasal flaring. Abdomen/GI: Soft, non-tender, with normal bowel sounds. No distension or tympany. No guarding or rebound. No evidence of tenderness throughout. Back: No spinal tenderness. No costovertebral tenderness. Full range of motion. Skin: Warm, dry with normal turgor. Normal color with no rashes, no lesions, and no evidence of cellulitis. MS/ Extremity: Pulses equal, no cyanosis. Neurovascular intact. Full, normal range of motion. Neuro: Awake and alert, GCS 15, oriented to person, place, time, and situation. Cranial nerves II-XII grossly intact. Motor strength 5/5 in all extremities. Sensory grossly intact. Cerebellar exam normal. Normal gait. Vital Signs: 18:19 BP 147 / 79; Pulse 50; Resp 17; Temp 98.5; Pulse Ox 100% ; Weight 108.86 kg; Height 6 ll1 ft. 1 in. (185.42 cm); Pain 0/10; 18:19 Body Mass Index 31.66 (108.86 kg, 185.42 cm) ll1 MDM: 18:24 Differential diagnosis: viral Infection, URI, bronchitis, gastroenteritis. Data ma2 reviewed: vital signs, nurses notes. Counseling: I had a detailed discussion with the patient and/or guardian regarding: the historical points, exam findings, and any diagnostic results supporting the discharge/admit diagnosis, the presence of at least one elevated blood pressure reading (>120/80) during this emergency department visit, the need for outpatient follow up. Response to treatment: the patient's symptoms have markedly improved after treatment. 18:25 Patient medically screened. ma2 Administered Medications: No medications were administered Disposition Summary: 08/19/21 18:25 Discharge Ordered Location: Home ma2 Condition: Stable ma2 Diagnosis - Acute upper respiratory infection, unspecified ma2 Followup: ma2 - With: Private Physician - When: Tomorrow - Reason: Continuance of care Discharge Instructions: - Upper Respiratory Infection, Adult ma2 - Discharge Summary Sheet 1 Forms: - Medication Reconciliation Form ma2 - Thank You Letter ma2 - Antibiotic Education ma2 - Prescription Opioid Use ma2 - Work release form ll1 Signatures: Stormy Samuels MD MD md2 Haley Nagy RN RN [facility]
[2021-08-19 18:54] VITALS: BP 147/79; TEMP 98.5; O2SAT 100
== END 2021-08-19 18:27 | disposition home or self-care (01) ==
LOC: ER 18:11
DX: J06.9 Acute upper respiratory infection, unspecified (principal)
CPT/HCPCS: 99283

== ENCOUNTER 2021-11-05 19:23 | Emergency (ER) | payer BC ==
[2021-11-05 22:15] LABS: Absolute Lymphocytes (CBC) 1.2 K/uL (0.7-4.9); Basophils % 0.1 % (0-1.3); Hematocrit 50.4 % (39.6-49.0); Lymphocytes % 7.7 % (15.3-44.8); RBC Red Blood Cell Count 5.71 M/uL (4.33-5.43)
[2021-11-05 22:28] LABS: Albumin 4.9 g/dL (3.4-5.0); Bilirubin Direct 0.2 mg/dL (0-0.2); Bilirubin Total 0.6 mg/dL (0.2-1.0); Potassium 4.1 mmol/L (3.5-5.1); Protein, Total 8.9 g/dL (6.4-8.2)
[2021-11-05] MEDS ORDERED: NA CHLORIDE 0.9% 1,000 ML ONE (22:33)
[2021-11-05] MEDS ORDERED: ONDANSETRON 4 MG/2 ML VIAL ONE ×2 (22:33→23:15)
[2021-11-05] MEDS ORDERED: FAMOTIDINE 20 MG/2 ML VIAL IV ONE (22:33)
[2021-11-05] MEDS ORDERED: MORPHINE 4 MG/ML SYR ONE ×2 (22:33→23:14)
[2021-11-05 23:52] LABS: Blood Morphology Comment NOT SEEN (NOT SEEN); Platelet Estimate ADEQ
[2021-11-05 23:59] LABS: Urine Blood Negative (Negative); Urine Glucose Negative (Negative); Urine Protein 1+ (Negative); Urine pH 8.5 (5.0-7.0)
--- NOTE | 2021-11-06 00:19 | ER ---
Nurse's Notes [facility] Name: Kishan Jose Age: 26 yrs Sex: Male : 1995 Arrival Date: 11/05/2021 Time: 19:26 Bed 9 Private MD: Diagnosis: Nausea with vomiting, unspecified;Abdominal pain, Generalized Presentation: 11/05 19:42 Chief complaint: Patient states: vomiting,ABD discomfort. Coronavirus screen: Vaccine da3 status: Patient reports being unvaccinated. Ebola Screen: No symptoms or risks identified at this time. Initial Sepsis Screen: Does the patient meet any 2 criteria? No. Patient's initial sepsis screen is negative. Does the patient have a suspected source of infection? No. Patient's initial sepsis screen is negative. Risk Assessment: Do you want to hurt yourself or someone else? Patient reports no desire to harm self or others. Onset of symptoms was November 04, 2021. 19:42 Method Of Arrival: Ambulatory da3 19:42 Acuity: VIC 3 da3 Triage Assessment: 19:45 General: Appears uncomfortable, Behavior is cooperative, quiet. da3 Historical: - Allergies: 19:45 No Known Allergies; da3 - PMHx: 19:45 None; da3 - Immunization history:: Client reports having NOT received the Covid vaccine. - Social history:: Smoking status: Patient denies any tobacco usage or history of. Screenin:30 Abuse screen: Denies threats or abuse. Nutritional screening: No deficits noted. bb Tuberculosis screening: No symptoms or risk factors identified. Fall Risk None identified. Assessment: 21:30 General: Appears in no apparent distress. uncomfortable, Behavior is calm, cooperative. bb Pain: Complains of pain in abdomen. Neuro: Level of Consciousness is awake, alert, obeys commands, Oriented to person, place, time, situation. Cardiovascular: Capillary refill < 3 seconds Patient's skin is warm and dry. Respiratory: Respiratory effort is even, unlabored, Respiratory pattern is regular. GI: Abdomen is round Bowel sounds present X 4 quads. Abd is soft X 4 quads. Derm: Skin is dry, Skin is normal, Skin temperature is warm. Musculoskeletal: Circulation, motion, and sensation intact. 11/06 00:21 Reassessment: Patient and/or family updated on plan of care and expected duration. Pain bb level reassessed. Patient is alert, oriented x 3, equal unlabored respirations, skin warm/dry/pink. Patient states feeling better. Patient states symptoms have improved. 00:36 Reassessment: Patient is alert, oriented x 3, equal unlabored respirations, skin bb warm/dry/pink. pt verbalized understanding of and agrees to plan of care discharge instructions given pt ambulated with steady gait to exit. Vital Signs: 11/05 19:42 BP 119 / 85; Pulse 62; Resp 22; Temp 97.0; Pulse Ox 100% on R/A; Weight 115.67 kg; da3 Height 6 ft. (182.88 cm); 22:08 BP 144 / 61; Pulse 57; Resp 16; Temp 97.7; Pulse Ox 100% ; lt3 11/06 00:19 BP 95 / 62; Pulse 75; Resp 16 S; Pulse Ox 96% on R/A; bb 11/05 19:42 Body Mass Index 34.58 (115.67 kg, 182.88 cm) da3 ED Course: 11/05 19:26 Patient arrived in ED. bp1 19:45 Triage completed. da3 19:45 Arm band placed on right wrist. da3 21:30 Mau Rodriguez PA is PHCP. cp 21:30 Mau Malave MD is Attending Physician. cp 21:30 Patient has correct armband on for positive identification. Bed in low position. Call bb light in reach. 21:30 No provider procedures requiring assistance completed. bb 22:02 Initial lab(s) drawn, by me, sent to lab. Inserted saline lock: 22 gauge in right lt3 antecubital area, using aseptic technique. 22:28 Kaylan La, RN is Primary Nurse. bb 23:24 CT Abd/Pelvis - IV Contrast Only In Process Unspecified. EDMS 11/06 00:37 IV discontinued, intact, bleeding controlled, No redness/swelling at site. Pressure bb dressing applied. Administered Medications: 11/05 22:35 Drug: NS 0.9% 1000 ml Route: IV; Rate: 1 bolus; Site: right antecubital; bb 23:53 Follow up: IV Status: Completed infusion; IV Intake: 1000ml bb 22:35 Drug: Zofran (Ondansetron) 4 mg Route: IVP; Site: right antecubital; bb 23:53 Follow up: Response: No adverse reaction bb 22:37 Drug: morphine 4 mg Route: IVP; Site: right antecubital; bb 23:53 Follow up: Response: No adverse reaction bb 22:39 Drug: Pepcid (famotidine) 20 mg Route: IVP; Site: right antecubital; bb 23:53 Follow up: Response: No adverse reaction bb 23:12 Drug: morphine 4 mg Route: IVP; Site: right antecubital; bb 23:53 Follow up: Response: No adverse reaction bb 23:54 Follow up: Response: No adverse reaction bb 23:13 Drug: Zofran (Ondansetron) 4 mg Route: IVP; Site: right antecubital; bb 23:54 Follow up: Response: No adverse reaction bb Intake: 23:53 IV: 1000ml; Total: 1000ml. bb Outcome: 11/06 00:18 Discharge ordered by . nelson 00:37 Discharged to home ambulatory. bb 00:37 Condition: stable 00:37 Discharge instructions given to patient, Instructed on discharge instructions, follow up and referral plans. medication usage, Demonstrated understanding of instructions, follow-up care, medications, Prescriptions given X 2. 00:38 Patient left the ED. bb Signatures: Dispatcher [employer] EDMS Kaylan La RN RN bb Page, Corey, PA PA cp Paniauga, Brittany bp1 Allan, David RN RN da3 Emmie Jolly 3
--- NOTE | 2021-11-06 00:19 | EDPHYS ---
Physician Documentation [facility] Name: Kishan Jose Age: 26 yrs Sex: Male : 1995 Arrival Date: 11/05/2021 Time: 19:26 Bed 9 Private MD: ED Physician Mau Malave HPI: 11/05 22:30 This 26 yrs old Male presents to ER via Ambulatory with complaints of Abdominal Pain, cp Nausea/Vomiting. 22:30 The patient presents with abdominal pain that is diffuse. Onset: The symptoms/episode cp began/occurred today. Associated signs and symptoms: Pertinent positives: nausea and vomiting. 22:30 Severity of pain: in the emergency department the pain is unchanged despite home cp interventions. Historical: - Allergies: 19:45 No Known Allergies; da3 - PMHx: 19:45 None; da3 - Immunization history:: Client reports having NOT received the Covid vaccine. - Social history:: Smoking status: Patient denies any tobacco usage or history of. ROS: 22:35 Constitutional: Negative for body aches, chills, fever. cp 22:35 Eyes: Negative for injury, pain, redness, and discharge. cp 22:35 Cardiovascular: Negative for chest pain, palpitations. 22:35 Respiratory: Negative for cough, shortness of breath, wheezing. 22:35 Abdomen/GI: Positive for abdominal pain, nausea and vomiting, Negative for diarrhea, constipation, hematemesis. 22:35 Neuro: Negative for altered mental status, headache, weakness. 22:35 All other systems are negative. Exam: 22:40 Constitutional: The patient appears in no acute distress, alert, awake, non-toxic, well cp developed, well nourished, uncomfortable. 22:40 Head/Face: Normocephalic, atraumatic. cp 22:40 Eyes: Periorbital structures: appear normal, Conjunctiva: normal, no exudate, no injection, Sclera: no appreciated abnormality, Lids and lashes: appear normal, bilaterally. 22:40 ENT: External ear(s): are unremarkable, Nose: is normal, Mouth: Lips: moist, Oral mucosa: moist, Posterior pharynx: Airway: no evidence of obstruction, patent. 22:40 Neck: ROM/movement: is normal, is supple, without pain, no range of motions limitations. 22:40 Chest/axilla: Inspection: normal, Palpation: is normal, no crepitus, no tenderness. 22:40 Cardiovascular: Rate: bradycardic, Rhythm: regular. 22:40 Respiratory: the patient does not display signs of respiratory distress, Respirations: normal, no use of accessory muscles, no retractions, labored breathing, is not present, Breath sounds: are clear throughout, no decreased breath sounds, no stridor, no wheezing. 22:40 Abdomen/GI: Inspection: abdomen appears normal, Bowel sounds: active, all quadrants, Palpation: soft, in all quadrants, severe abdominal tenderness, in all quadrants, rebound tenderness, is not appreciated, involuntary guarding, is not appreciated. 22:40 Back: pain, is absent, ROM is normal. 22:40 Neuro: Orientation: to person, place \T\ time. Mentation: is normal. Vital Signs: 19:42 BP 119 / 85; Pulse 62; Resp 22; Temp 97.0; Pulse Ox 100% on R/A; Weight 115.67 kg; da3 Height 6 ft. (182.88 cm); 22:08 BP 144 / 61; Pulse 57; Resp 16; Temp 97.7; Pulse Ox 100% ; lt3 11/06 00:19 BP 95 / 62; Pulse 75; Resp 16 S; Pulse Ox 96% on R/A; bb 11/05 19:42 Body Mass Index 34.58 (115.67 kg, 182.88 cm) da3 MDM: 11/05 21:30 Patient medically screened. colton 23:00 Differential diagnosis: appendicitis, cholecystitis, Cholelithiasis, pancreatitis, cp Peptic Ulcer Disease, Perf. Duodenal Ulcer, Perf. Gastric Ulcer, Ureterolithiasis, urinary tract infection. 11/06 00:17 Data reviewed: vital signs, nurses notes, lab test result(s), radiologic studies, CT cp scan. 00:17 Counseling: I had a detailed discussion with the patient and/or guardian regarding: the cp historical points, exam findings, and any diagnostic results supporting the discharge/admit diagnosis, lab results, radiology results, to return to the emergency department if symptoms worsen or persist or if there are any questions or concerns that arise at home. Response to treatment: the patient's symptoms have markedly improved after treatment, VSS. Pain and nausea markedly improved. Vomiting resolved. Will discharge to home for continued monitoring. Special discussion: Based on the patient's Hx, exam, and Dx evaluation, there is no indication for emergent surgery or inpatient Tx. It is understood by the patient/guardian that if the Sx's persist or worsen they need to return immediately for re-evaluation. 11/05 21: Order name: Basic Metabolic Panel; Complete Time: 23:00 bb 11/05 23:00 Interpretation: Normal except: GLUC 112; CRE 1.32; GFR 67. 11/05 Order name: CBC with Diff; Complete Time: 00:02 11/05 23:00 Interpretation: Normal except: WBC 15.70; RBC 5.71; HCT 50.4; DARI% 87.7; LYM% 7.7; NEUT cp A 13.8. 11/05 21: Order name: Hepatic Function; Complete Time: 23:00 11/05 23:00 Interpretation: Normal except: TP 8.9; GLOB 4.0. 11/05 Order name: Lipase; Complete Time: 23:00 11/05 22:23 Order name: Manual Differential; Complete Time: 00:02 EDKY 11/06 00:02 Interpretation: Normal except: SEGS 83; BANDS [F] 2; LYM 10. 11/05 23:59 Order name: Urine Dipstick-Ancillary; Complete Time: 00:02 EDKY 11/06 00:02 Interpretation: Normal except: UKET 2+; UPH 8.5; UPROT 1+. 11/05 21: Order name: IV Saline Lock; Complete Time: 22:03 11/05 22:19 Order name: CT Abd/Pelvis - IV Contrast Only 11/05 21:29 Order name: Labs collected and sent; Complete Time: 22:03 11/05 21:29 Order name: Urine Dipstick-Ancillary (obtain specimen); Complete Time: 23:54 11/06 00:02 Order name: PO challenge; Complete Time: 00:22 cp Administered Medications: 11/05 22:35 Drug: NS 0.9% 1000 ml Route: IV; Rate: 1 bolus; Site: right antecubital; bb 23:53 Follow up: IV Status: Completed infusion; IV Intake: 1000ml bb 22:35 Drug: Zofran (Ondansetron) 4 mg Route: IVP; Site: right antecubital; bb 23:53 Follow up: Response: No adverse reaction bb 22:37 Drug: morphine 4 mg Route: IVP; Site: right antecubital; bb 23:53 Follow up: Response: No adverse reaction bb 22:39 Drug: Pepcid (famotidine) 20 mg Route: IVP; Site: right antecubital; bb 23:53 Follow up: Response: No adverse reaction bb 23:12 Drug: morphine 4 mg Route: IVP; Site: right antecubital; bb 23:53 Follow up: Response: No adverse reaction bb 23:54 Follow up: Response: No adverse reaction bb 23:13 Drug: Zofran (Ondansetron) 4 mg Route: IVP; Site: right antecubital; bb 23:54 Follow up: Response: No adverse reaction bb Disposition: 11/06 11:10 Co-signature as Attending Physician, Mau Malave MD I agree with the assessment and colton plan of care. Disposition Summary: 11/06/21 00:18 Discharge Ordered Location: Home cp Problem: new cp Symptoms: have improved cp Condition: Stable cp Diagnosis - Nausea with vomiting, unspecified cp - Abdominal pain, Generalized cp Followup: cp - With: Private Physician - When: 1 - 2 days - Reason: Worsening of condition Discharge Instructions: - Discharge Summary Sheet cp - Abdominal Pain, Adult cp - Nausea and Vomiting, Adult cp Forms: - Medication Reconciliation Form cp - Thank You Letter cp - Antibiotic Education cp - Prescription Opioid Use cp Prescriptions: - Pepcid 20 mg Oral Tablet - take 1 tablet by ORAL route every 12 hours for 10 days; 20 tablet; Refills: 0, cp Product Selection Permitted - promethazine 25 mg Oral Tablet - take 1 tablet by ORAL route every 6 hours As needed; 20 tablet; Refills: 0, cp Product Selection Permitted Signatures: Dispatcher [employer] Mau Kaur MD MD cha Ballard, Brenda, RN RN Mau Mast PA PA cp Allan, David RN RN da3
[2021-11-06 00:47] VITALS: TEMP 97.7
[2021-11-06 00:48] VITALS: BP 95/62; O2SAT 96
--- NOTE | 2021-11-06 15:00 | RAD REPORT ---
EXAM DESCRIPTION: CT - Abdomen Pelvis W Contrast - 11/06/2021 5:59 am CLINICAL HISTORY: 26 years, Male, ABD PAIN COMPARISON: 07/27/2020 TECHNIQUE: Contrast-enhanced images of the abdomen and pelvis were performed utilizing 5 mm slice th ickness at 5 mm interval reconstruction from the lung bases to the ischial tuberosities after the adm inistration IV contrast. In addition multiplanar reformats in the coronal and sagittal plane were obtained and reviewed. This exam was performed according to our departmental dose-optimization protocol, which includes auto mated exposure control, adjustment of the mA and/or kV according to patient size and/or use of iterat jing reconstruction technique. FINDINGS: The lung bases demonstrate to be clear. The liver demonstrate questionable mild decreased attenuation suggesting mild fatty infiltration. Oth erwise the liver, gallbladder, pancreas, spleen and adrenal glands demonstrate to be unremarkable, no focal lesions are noted. The kidneys demonstrate normal uptake of contrast media. No evidence for nephrolithiasis and/or hydro nephrosis. Questionable tiny lower pole right renal cyst measuring 0.5 cm on image 43 Grossly the unopacified stomach, small bowel and large bowel demonstrate to be within normal limits. There is no evidence for bowel dilatation and/or free air. The appendix is normal. Left site colo n is decompressed with no significant abnormalities The urinary bladder demonstrate to be unremarkable. The prostate gland is normal. The aorta demon strate to be normal. There is no retroperitoneal lymphadenopathy. There is no evidence for ascites/ or significant abnormal fluid collections. The rest of the soft tissue and bony structures are within normal limits. IMPRESSION: No acute intra-abdominal process. Questionable mild fatty infiltration of the liver. Questionable tiny lower pole right renal cyst measuring 0.5 cm. Electronically signed by: Azam Banks MD 11/05/2021 11:35 PM [employer] Due to temporary technical issues with the PACS/Fluency reporting system, reports are being signed by the in house radiologists without review as a courtesy to insure prompt reporting. The interpreting radiologist is fully responsible for the content of the report.
== END 2021-11-06 00:38 | disposition home or self-care (01) ==
LOC: ER 19:23
DX: R10.84 Generalized abdominal pain (principal)
CPT/HCPCS: 96361; 85025; 80048; 36415; 80076; 81003; 83690; 74177; 96375; 96374; 99284; J7030; J2405 ×2

== ENCOUNTER 2022-01-28 13:23 | Emergency (ER) | payer BC ==
--- NOTE | 2022-01-28 13:51 | EDPHYS ---
Physician Documentation [facility] Name: Kishan Jose Age: 26 yrs Sex: Male : 1995 Arrival Date: 01/28/2022 Time: 13:25 Bed Waiting Private MD: ED Physician Stanley Cabral HPI: 01/28 13:49 This 26 yrs old Black Male presents to ER via Unassigned with complaints of kb asymptomatic. 13:49 Pt reports he vomited once at work on 01/25/22 so they sent him home and told him he had kb to get a covid test before returning. Also needs a return to work physical done. . Onset: The symptoms/episode began/occurred 3 day(s) ago. Severity of symptoms: At their worst the symptoms were very mild in the emergency department the symptoms have resolved. The patient has not experienced similar symptoms in the past. The patient has not recently seen a physician. - Immunization history:: Client reports having NOT received the Covid vaccine. ROS: 13:48 Constitutional: Negative for fever, chills, and weight loss. kb 13:48 All other systems are negative. Exam: 13:48 Constitutional: This is a well developed, well nourished patient who is awake, alert, kb and in no acute distress. Head/Face: Normocephalic, atraumatic. ENT: Moist Mucous membranes Respiratory: Respirations even and unlabored. No increased work of breathing. Talking in full sentences Skin: Warm, dry with normal turgor. Normal color. MS/ Extremity: Pulses equal, no cyanosis. Neurovascular intact. Full, normal range of motion. Neuro: Awake and alert, GCS 15, oriented to person, place, time, and situation. Moves all extremities. Normal gait. Vital Signs: 13:45 BP 124 / 67; Pulse 52; Resp 16; Temp 97.9; Pulse Ox 100% ; Weight 99.79 kg; Height 5 vg1 ft. 11 in. (180.34 cm); Pain 0/10; 13:45 Body Mass Index 30.68 (99.79 kg, 180.34 cm) vg1 MDM: 13:47 Patient medically screened. kb 13:48 Data reviewed: vital signs, nurses notes. Data interpreted: Pulse oximetry: on room air kb is 100 %. Interpretation: normal. Counseling: I had a detailed discussion with the patient and/or guardian regarding: the historical points, exam findings, and any diagnostic results supporting the discharge/admit diagnosis, the need for outpatient follow up, a family practitioner, to return to the emergency department if symptoms worsen or persist or if there are any questions or concerns that arise at home. Administered Medications: No medications were administered Disposition: 13:48 Encounter for covid test and work physical - asymptomatic. kb 18:51 Co-signature as Attending Physician, Stanley Cabral MD I agree with the assessment and rn plan of care. Attestation: The patient's history, exam findings, diagnostics, and a summary of any interventions or procedures was reviewed in detail with Magaly CANTU. Disposition Summary: 01/28/22 13:50 Discharge Ordered Location: Home kb Condition: Stable kb Diagnosis - Encounter for screening, unspecified kb Followup: kb - With: Emergency Department - When: As needed - Reason: Worsening of condition Followup: kb - With: Private Physician - When: 2 - 3 days - Reason: Recheck today's complaints, Continuance of care, Re-evaluation by your physician Forms: - Medication Reconciliation Form kb - Thank You Letter kb - Antibiotic Education kb - Prescription Opioid Use kb Signatures: Magaly Valencia FNP-C FNP-Stanley Washington MD MD rn Janina Zuluaga RN RN vg1
--- NOTE | 2022-01-28 13:53 | ER ---
Nurse's Notes [facility] Name: Kishan Jose Age: 26 yrs Sex: Male : 1995 Arrival Date: 01/28/2022 Time: 13:25 Bed Waiting Private MD: Diagnosis: Encounter for screening, unspecified Presentation: 01/28 13:45 Chief complaint: Patient states: about 3 days ago pt vomited at work and was sent home vg1 and states needs to be checked for covid and have a physical completed in order to return to work. Denies any pain or covid symptoms at this time. Coronavirus screen: Vaccine status: Patient reports being unvaccinated. Client denies travel out of the [place] in the last 14 days. Ebola Screen: Patient negative for fever greater than or equal to 101.5 degrees Fahrenheit, and additional compatible Ebola Virus Disease symptoms. Initial Sepsis Screen: Does the patient meet any 2 criteria? No. Patient's initial sepsis screen is negative. Does the patient have a suspected source of infection? No. Patient's initial sepsis screen is negative. Risk Assessment: Do you want to hurt yourself or someone else? Patient reports no desire to harm self or others. Onset of symptoms was January 25, 2022. 13:45 Method Of Arrival: Ambulatory vg1 13:45 Acuity: VIC 5 vg1 - Immunization history:: Client reports having NOT received the Covid vaccine. Vital Signs: 13:45 BP 124 / 67; Pulse 52; Resp 16; Temp 97.9; Pulse Ox 100% ; Weight 99.79 kg; Height 5 vg1 ft. 11 in. (180.34 cm); Pain 0/10; 13:45 Body Mass Index 30.68 (99.79 kg, 180.34 cm) vg1 ED Course: 13:25 Patient arrived in ED. as 13:35 Magaly Valencia FNP-C is PSYCHIATRIC. kb 13:35 Stanley Cabral MD is Attending Physician. kb 13:45 Arm band placed on. vg1 13:53 Triage completed. vg1 Administered Medications: No medications were administered Outcome: 13:50 Discharge ordered by . kb 13:53 Patient left the ED. vg1 Signatures: Magaly Valencia FNP-C FNP-Noris Rosales Victoria, RN RN vg1
[2022-01-28 13:56] VITALS: BP 124/67; TEMP 97.9; O2SAT 100
== END 2022-01-28 13:53 | disposition home or self-care (01) ==
LOC: ER 13:23
DX: Z02.79 Encounter for issue of other medical certificate (principal)
CPT/HCPCS: 99281